=== PATIENT | female | born 1975 | race Caucasian/White ===

== ENCOUNTER 2016-10-20 10:47 | Emergency (ER) | payer OTHER ==
[~2016-10-20] VITALS: Ht 162.6 cm; Wt 136.1 kg
[~2016-10-20 10:47] MED LIST: XANAX0.5 MG PO
[2016-10-20] MEDS ORDERED: RANITIDINE HCL150 MG PO (11:27)
[2016-10-20] MEDS ORDERED: VITAMIN D250000 UNIT PO (11:27)
[2016-10-20] MEDS ORDERED: GIANVI 3 MG-0.1 EACH PO (11:27)
--- NOTE | 2016-10-20 11:51 | ED CARDIAC/CP/PALPITATIONS ---
History of Present Illness General Chief Complaint: Chest Pain Stated Complaint: C/P SINCE SUNDAY NIGHT Source: patient Exam Limitations: no limitations Vital Signs & Intake/Output Vital Signs & Intake/Output Vital Signs Date Time Temp Pulse Resp B/P B/P Pulse O2 O2 Flow FiO2 Mean Ox Delivery Rate 10/20 1712 97.4 84 18 172/77 100 Room Air 10/20 1309 98.0 82 18 167/79 96 Room Air 10/20 1143 Room Air 10/20 1051 98.5 84 16 164/103 100 Room Air Allergies Coded Allergies: No Known Allergies (10/20/16) Reconcile Medications Ergocalciferol (Vitamin D2) (Vitamin D2) 50,000 UNIT CAPSULE 1 CAP PO QMON VITAMIN SUPPORT (Reported) Ethinyl Estradiol/Drospirenone (Gianvi 3 MG-0.02 MG Tablet) 0.02 MG-3 MG (24) TABLET 1 TAB PO DAILY BC (Reported) Omeprazole Magnesium (Prilosec Otc) 20 MG TABLET.DR 1 TAB PO DAILY GERD Ranitidine (Ranitidine HCl) 150 MG TABLET 1 TAB PO BID PRN GI (Reported) Triage Note: PT TO ED WITH LT CHEST/SHOULDER PAIN. STATES SHE HAS HAD HEARTBURN WELL AND NOT GOING AWAY. REPORTS HAVING VOMITING AND DIARRHEA SUNDAY BUT NOTHING SINCE THEN. Triage Nurses Notes Reviewed? yes Onset: Gradual Duration: constant Timing: recent history Activities at Onset: none : No Patient currently breastfeeds: No HPI: Patient is a 40-year-old female with a past medical history of vitamin D deficiency anemia and currently is taking oral contraceptive medications who presents emergency room with a 5 day history of waxing and waning left-sided chest wall pain with radiation to scapula. Patient states that when eating and drinking her symptoms are worse or she has significant belching symptoms. Patient states Sunday she had nausea and one episode of vomiting after eating and which on Sunday she had episodes of loose watery diarrhea production however the symptoms have ceased. Patient still complains of chest wall pain. Denies any fever chills or arm pain jaw pain diaphoresis or palpitations leg swelling hemoptysis Patient states that palpation of the chest makes worse. Denies any illicit drug use smoking history or tobacco use Denies any NSAID use prior to onset of symptoms however today patient was using ibuprofen for pain Past History Travel History Traveled to [place] past 21 day No Medical History Any Pertinent Medical History? see below for history Blood Disorders: anemia Other Medical Hx: VIT D DEF Surgical History Surgical History: non-contributory Psychosocial History Who do you live with Spouse Services at Home None What is your primary language Irish Tobacco Use: Never used Family History Family History, If Any: FATHER, ; Cause: Cardiac abnormality. MOTHER, ; Cause: Cardiac abnormality. Hx Contributory? No Review of Systems Review of Systems Constitutional: Reports: no symptoms. EENTM: Reports: no symptoms. Respiratory: Reports: see HPI. Denies: cough, short of breath. Cardiovascular: Reports: see HPI, chest pain. GI: Reports: see HPI. Denies: abdominal pain. Genitourinary: Reports: no symptoms. Musculoskeletal: Reports: no symptoms. Skin: Reports: no symptoms. Neurological/Psychological: Reports: no symptoms. Hematologic/Endocrine: Reports: no symptoms. Immunologic/Allergic: Reports: no symptoms. All Other Systems: Reviewed and Negative Physical Exam Physical Exam General Appearance: no apparent distress, obese Cardiovascular: regular rate/rhythm Comments: Well-developed well-nourished person in no acute distress HEENT: Normal EENT exam, Neck: Supple, no lymphadenopathy, normal range of motion without pain or tenderness Back: Nontender, no CVA tenderness. Cardiovascular: Regular rate and rhythms no murmurs rubs or gallops, normal JVP Respiratory: Left anterior chest wall point tenderness upon palpation. No respiratory distress.breath sounds clear to auscultation bilaterally Abdomen: Soft, nontender nondistended, no appreciable organomegaly. Normal bowel sounds. No ascites Extremity: No edema, no calf tenderness to palpation, normal and equal pulses. Neuro: Alert oriented x3, motor sensory normal, Skin: No appreciable rash on exposed skin, skin is warm and dry. Psych: Mood and affect is normal, memory and judgment is normal. Core Measures ACS in differential dx? No Severe Sepsis Present: No Septic Shock Present: No Progress Differential Diagnosis: AMI, aortic dissection, atrial fibrillation, cholecystitis, CHF/pulm edema, costochondritis, hyperkalemia, hypovolemia, hyperthyroid, hyperventilation, intracranial hemorrhage, musculoskeletal pain, myocarditis, pancreatitis, pericarditis, pneumonia, pneumothorax, PSVT, pulmonary embolism, PUD/GERD, PVCs/PACs, respiratory failure, unstable angina, V -fib/V-Tach, WPW syndrome Plan of Care: Orders Procedure Date/time Status Add-on Test (ER Only) 10/20 1522 Active HUMAN BETA HCG SCREEN 10/20 1204 Complete Telemetry/Multi [place] Assessor 10/20 1158 Active TROPONIN LEVEL 10/20 1157 Complete D-DIMER 10/20 1157 Complete COMPREHENSIVE METABOLIC PANEL 10/20 1157 Complete CBC WITHOUT DIFFERENTIAL 10/20 115 Complete EKG 10/20 1053 Active Laboratory Tests 10/20/16 1204: Anion Gap 9, Estimated GFR > 60, BUN/Creatinine Ratio 12.5, Glucose 83, Calcium 8.8, Total Bilirubin 0.4, AST 16, ALT 26, Alkaline Phosphatase 175 H, Troponin I < 0.01, Total Protein 6.5, Albumin 3.5, Globulin 3.0, Albumin/Globulin Ratio 1.2, Total Beta HCG NEGATIVE, D-Dimer High Sensitivty 713 H, CBC w Diff NO MAN DIFF REQ, RBC 4.47, MCV 70.7 L, MCH 22.5 L, RDW 15.4 H, MPV 8.2, Gran % 65.3, Lymphocytes % 27.6, Monocytes % 5.9, Eosinophils % 0.8, Basophils % 0.4, Absolute Granulocytes 6.3, Absolute Lymphocytes 2.7, Absolute Monocytes 0.6, Absolute Eosinophils 0.1, Absolute Basophils 0, PUBS MCHC 31.9 L Patient currently is resting comfortably at bedside. 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 Patient needs to be transported to [facility] because of our CAT scan is malfunctioning patient signed temporary transport paperwork After GI cocktail was administered patient had significant improvement of chest pain and belching symptoms. 17210/20/[address] scan currently is in no apparent distress. Denies any chest pain CT scan was resulted showing no evidence of pulmonary embolism and unremarkable studies. Dictation was noted to be performed by DR. ERICA COATES MD Upon discharge patient looks on no apparent distress patient was strongly advised to follow up with supervisor painting department in which they state that they will follow up with the family's GI doctor. All labs were given to patient for follow-up. (SAMARIA FIERRO,SHARON) Initial ED EKG: SINUS RHYTHM AT 86 BPM Prior EKG: unchanged Departure Departure Disposition: HOME OR SELF CARE Condition: Stable Clinical Impression Primary Impression: Atypical chest pain Secondary Impressions: GERD (gastroesophageal reflux disease) Referrals: ROSEMARIE ELKINS,AUTUMN Potts (PCP/Family) Additional Instructions: As discussed continue all medications as directed. Begin a prescription of Prilosec for your symptoms. Prescriptions waiting is [facility] pharmacy. Follow-up with your established supervisor painting department on Sunday please provide all copies of blood work for follow-up. If symptoms worsen return to the emergency room. Departure Forms: Customer Survey General Discharge Information Prescriptions: Current Visit Scripts Omeprazole Magnesium (Prilosec Otc) 1 TAB PO DAILY #30 TAB Critical Care Note Critical Care Note Critical Care Time: non-applicable
[2016-10-20 12:13] LABS: ABSOLUTE BASOPHIL COUNT 0 /CUMM (0.0-0.2); ABSOLUTE EOSINOPHIL COUNT 0.1 /CUMM (0.0-0.7); ABSOLUTE GRANULOCYTE CT 6.3 /CUMM (1.4-6.5); ABSOLUTE LYMPH COUNT 2.7 /CUMM (1.2-3.4); ABSOLUTE MONOCYTE COUNT 0.6 /CUMM (0.10-0.60); BASOPHIL % 0.4 % (0.0-2.0); EOSINOPHIL % 0.8 % (0-5); GRANULOCYTE % 65.3 % (42.2-75.2); HEMATOCRIT 31.6 % (37-47); MEAN CORPUSCULAR HGB 22.5 PG (27.0-31.0); MEAN CORPUSCULAR HGB CONC 31.9 G/DL (33.0-37.0); MEAN CORPUSCULAR VOLUME 70.7 FL (81.0-99.0); MEAN PLATELET VOLUME 8.2 FL (7.4-10.4); PLATELET COUNT 330 /CUMM (130-400); RBC DISTRIBUTION WIDTH 15.4 % (11.5-14.5); RED BLOOD CELL CT 4.47 /CUMM (4.20-5.40); WHITE BLOOD CELL COUNT 9.7 /CUMM (4.8-10.8)
[2016-10-20 17:12] VITALS: BP 172/77
[2016-10-20] MEDS ORDERED: PRILOSEC OTC20 M1 PO (17:45)
== END 2016-10-20 17:52 ==
LOC: ERH 10:47
PROVIDERS: Physician Assistant
DX: R07.89 Other chest pain (principal); K21.9 Gastro-esophageal reflux disease without esophagitis
CPT/HCPCS: 93005; 93010